=== PATIENT | male | born 1985 | race Hispanic/Latino ===

== ENCOUNTER 2020-04-13 14:51 | Emergency (ER) | payer OTHER ==
[~2020-04-13] VITALS: Ht 185.4 cm; Wt 127.0 kg
--- NOTE | ~2020-04-13 | EKG ---
[facility] [address] [facility] [place], [place] [address] Draft EKG completed, results pending confirmation PATIENT NAME: RADHA WISEMAN Electrocardiogram DATE OF : 87 PHYSICIAN: PRELIMINARY REPORT #: [id number] REPORT IS CONFIDENTIAL AND NOT TO BE RELEASED WITHOUT AUTHORIZATION
[~2020-04-13 14:51] MED LIST: IBUPROFEN800 MG PO; KEFLEX500 MG PO; NORCO 5-325 TA1 EACH PO
[2020-04-13] MEDS ORDERED: ZOFRAN4 MG SL (18:22)
--- NOTE | 2020-04-15 14:34 | EKG ---
[facility] [address] [facility] [place] [address] Signed Sinus bradycardia Left axis deviation Nonspecific intraventricular block Abnormal ECG When compared with ECG of 13-APR-2020 15:41, (Unconfirmed) premature ventricular complexes are no longer present Nonspecific T wave abnormality has replaced inverted T waves in Inferior leads Confirmed by ADRIENNE HENRY DO ([id number]) on 04/15/2020 2:34:46 PM Electronically Signed By: ADRIENNE HENRY DO 04/15/20 1434 PATIENT NAME: DEREK FIGUEROA Electrocardiogram DATE OF : 87 PHYSICIAN: ADRIENNE HENRY DO REPORT #: [id number] REPORT IS CONFIDENTIAL AND NOT TO BE RELEASED WITHOUT AUTHORIZATION
--- NOTE | 2020-04-15 14:34 | EKG ---
[facility] [address] [facility] [place], [place] [address] Signed Sinus rhythm with occasional premature ventricular complexes Left axis deviation Left ventricular hypertrophy with QRS widening Abnormal ECG When compared with ECG of 13-APR-2020 15:40, (Unconfirmed) premature ventricular complexes are now present Confirmed by ADRIENNE HENRY DO ([id number]) on 04/15/2020 2:34:33 PM Electronically Signed By: ADRIENNE HENRY DO 04/15/20 1434 PATIENT NAME: DEREK FIGUREOA Electrocardiogram DATE OF : 87 PHYSICIAN: ADRIENNE HENRY DO REPORT #: [id number] REPORT IS CONFIDENTIAL AND NOT TO BE RELEASED WITHOUT AUTHORIZATION
== END 2020-04-13 19:42 | disposition home or self-care (01) ==
LOC: ED 14:51
DX: E11.43 Type 2 diabetes mellitus with diabetic autonomic (poly)neuropathy (principal); K31.84 Gastroparesis; Z88.5 Allergy status to narcotic agent
CPT/HCPCS: 71045; 71260; 74177; 80053; 83690; 84484; 85025; 85379; 93005; 93010; 99284-25; C9113; J1200; J1885; J2060; J2270; J2405; Q9967